=== PATIENT | female | born 1940 | race Caucasian/White ===

== ENCOUNTER 2017-06-24 11:52 | Emergency (ER) | payer MEDICARE, MEDICAID ==
[~2017-06-24] VITALS: Ht 157.5 cm; Wt 63.5 kg
[~2017-06-24 11:52] MED LIST: ACETAMINOPHEN325 M2 PO; ACETAMINOPHEN650 M1 PO; CLARITIN10 MG PO; DONEPEZIL 5MG TA5 MG PO; ENULOSE10 GM/15 M PO; FOSAMAX70 MG PO; IMODIUM2 MG PO; KEFLEX 500MG.500 MG PO; KLOR-CON M1010 MEQ PO; LASIX20 MG PO; LOPERAMIDE2 MG PO; MIRALAX17 GM/DOSE PO; Mobic7.5 MG PO; OS-CAL 500+D 501 TAB PO; OXYBUTYNIN CHLO10 MG PO; OYSTER SHELL CA PO; POTASSIUM CHLO10 ME3 PO; REQUIP1 MG PO; SYNTHROID 0.00.05 MG PO; TAMIFLU 75MG CA75 MG PO; TESSALON PERLE100 M1 PO; VENTOLIN H0.09 MG/AC IH; ZOCOR10 MG PO; ZOFRAN ODT4 MG PO; ZYPREXA ZYDIS5 MG PO
--- NOTE | 2017-06-24 12:00 | Emergency Room Report ---
History of Present Illness Time Seen by [id number] Presenting Problem in Triage Pt arrived:Ambulance Stretcher Presenting Problem:VOMITING WITH FEVER SINCE THIS MORNING Onset of symptoms date/time:06/2406/02/800 or onset unknown for: Treatment Prior to Arrival: BRAND COORDINATOR Provided by: Sepsis Risk Assessment: Temp: 101.5 B/P: 118/96 MAP: 103 Pulse: 119 Resp: 16 Recent fever? Y Clinical Suspician of Infection? N Mental Status: 1 - Regular (Normal Baseline) Sepsis Risk:Possible Sepsis Risk Have you (or family members/close friends) recently traveled outside the [place]? N If Yes, where/when: Have you had exposure to infectious disease within the past month? N TB? Other? Specify: Comment The patient is sent in by ambulance from [facility] for fever and vomiting that started this morning. The patient is nonverbal and unable to give any further history. ALLERGIES Coded Allergies: erythromycin base (From ERYTHROCIN) (10/14/15) Home Medications Active Scripts Ondansetron (Zofran 4MG Odt) 4 MG PO Q6HP PRN NAUSEA AND VOMITING #10 ODT Prov: 10/14/15 Reported Medications Lactulose (Enulose) 10 GM PO DAILY Alendronate Sodium (Fosamax) 70 MG PO WEEKLY Furosemide (Lasix) 20 MG PO DAILY Levothyroxine Sodium (Synthroid 0.05MG) 0.05 MG PO DAILY Loratadine (Claritin 10MG Tab) 10 MG PO DAILY Meloxicam (Mobic) 7.5 MG PO BID Olanzapine (Zyprexa Zydis) 20 MG PO DAILY Polyethylene Glycol 3350 (Miralax) 17 GM PO DAILY Ropinirole Hydrochloride (Requip) 1 MG PO BID Simvastatin (Zocor) 10 MG PO QHS Potassium Chloride (Klor-Con M10) 10 MEQ PO DAILY Oxybutynin Chloride (Oxybutynin Chloride ER) 10 MG PO DAILY Calcium/Cholecalciferol (Oyster Shell Ca/Vit D 500 MG-200 Iunits) 1 TAB PO DAILY Acetaminophen (Acetaminophen Tab) 325 MG PO Q4H PRN PAIN LOPERAMIDE HCL (Loperamide) 2 MG PO Q3H ALBUTEROL (Ventolin Hfa) 1 PUFF IH Q4H PRN BREATHING Donepezil HCl (Donepezil 5MG) 5 MG PO DAILY History Medical History General CAD? No Angina: No [place]: No Hypertension? No Hyperlipidemia? Yes CHF? No DVT? No PE? No COPD? No Asthma? No Anemia? No GERD? No Gastric ulcers? No GI Bleed? No Hernia? No Thyroid Problems? Yes Hypothyroidism? Yes CVA? No Seizures? No Diabetes? No Renal Insuffiency? No End Stage Renal Disease? No UTI? No Stones? No BPH? No GB Disease: No Nephritic Syndrome? No Asplenia? No Hepatitis? No Sickle Cell Disease? No Arthritis? No Migraines? No Cataracts? No Glaucoma? No MRSA? No HIV? No TB? No Anxiety? No Depression? Yes Cancer? No More? Yes Additional hx: DEMENTIA, SCHIZOPHRENIA,RLS Immunization Hx DT/Tetanus UNKNOWN Surgical Hx Previous Surgery?Y THYROID Social History Smoking Hx Smoker: Unknown if Ever Smoked Tobacco: No Alcohol Alcohol: No Review of Systems All Other Systems Reviewed and Negative (unobtainable, nonverbal) Physical Exam Vital Signs Vital Signs Date Time Temp Pulse Resp B/P Pulse O2 O2 Flow FiO2 Ox Delivery Rate 06/24 1512 101.0 114 20 160/81 96 06/24 1510 101.0 114 20 160/81 96 06/24 1355 101.0 98 20 140/78 97 06/24 1154 101.5 119 16 118/96 94 General Appearance no apparent distress, cachetic, nonverbal. Contractures of extremities. Not cooperative with exam, resists any movement. Eye Exam - bilateral eye normal exam, bilateral eye PERRL, bilateral eye EOMI Ear, Nose, Throat tympanic membranes unremarkable. Will not open mouth to inspect the pharynx or oral cavity. Neck normal inspection, non-tender, supple, full range of motion Respiratory Status Yes: trachea midline, chest symmetrical, non tender chest. No: respiratory distress. Lung Sounds bilateral: normal breath sounds, lungs clear. Cardiovascular no peripheral edema, no gallop, no JVD, no murmur, no rub, normal peripheral pulses, tachycardia Peripheral Pulses Pulses normal Yes Gastrointestinal normal bowel sounds, normal exam, non tender (no guarding or grimacing), soft, no organomegaly Extremities no erythema, no signs of cellulitis Neurologic alert (eyes open) Skin intact, normal color, warm/dry Lymphatic no adenopathy Medical Decision Making LABS/Meds/Orders Pt receiving controlled substance in ED? No Results/Orders Laboratory Tests 06/24/17 1335: Lactic Acid 2.0 06/24/17 1248: Sodium 147 H, Potassium 4.0, Chloride 110 H, Carbon Dioxide 26, BUN 28 H, Creatinine 1.4 H, Estimated Creat Clear 34 L, Estimated GFR (MDRD) 37 L, Glucose 139 H, Calcium 9.9, Total Bilirubin 0.6, AST 17, ALT 14, Alkaline Phosphatase 107, Total Protein 7.1, Albumin 3.2 L, Globulin 3.9 H, Albumin/ Globulin Ratio 0.8 L, WBC 4.6 L, RBC 4.90, Hgb 14.5, Hct 45.4, MCV 92.7, RDW 12.8, Plt Count 117 L, MPV 8.7, Gran % 89.6 H, Gran # 4.1, Total Counted 100, Lymphocytes % 8.3 L, Monocytes % 1.0 L, Eosinophils % 1.0, Basophils % 0.2, Neutrophils 74, Band Neutrophils 6, Lymphocytes (Manual) 9 L, Lymphocytes # 0.4 L, Monocytes (Manual) 5, Monocytes # 0.0 L, Eosinophils # 0.1, Eosinophils # ( Manual) 1, Basophils # 0.0, Atypical Lymphocytes 5, Platelet Estimate SLIGHT DECREASE, PUBS MCHC 31.9, MCH 29.6 06/24/17 1240: Urine Color YELLOW, Urine Appearance TURBID, Urine pH 7.0, Ur Specific [place] 1.015, Urine Protein 2+ H, Urine Ketones TRACE H, Urine Blood 3+ H, Urine Nitrate NEGATIVE, Urine Bilirubin NEGATIVE, Urine Urobilinogen 0.2, Ur Leukocyte Esterase 3+ H, Urine RBC 10-20, Urine WBC TNTC, Urine Bacteria 4+, Urine Glucose NEGATIVE 06/24/17 1226: Stl Cyclospora species NOT DETECTED, Stool Rotavirus (PCR) NOT DETECTED, Stool Campylobacter PCR NOT DETECTED, Stool Giardia Lamblia PCR NOT DETECTED, Stl Norovirus GI/GII PCR NOT DETECTED, Adenovirus (PCR) NOT DETECTED, C. difficile Tox (PCR) NOT DETECTED, E. coli (PCR) NOT DETECTED, Yersinia (PCR) NOT DETECTED Current Medication Orders Sig/Lesley Start time Last Medication Dose Route Stop Time Status Admin Ceftriaxone Sodium 0 .STK-MED ONE 06/24 1344 DC IV Sodium Chloride 1,000 ML .STK-MED ONE 06/24 1344 DC IV Sodium Chloride 100 ML .STK-MED ONE 06/24 1344 DC IV Ondansetron HCl 0 .STK-MED ONE 06/24 1343 DC .ROUTE Ondansetron HCl 4 MG ONCE ONE 06/24 1330 DC 06/24 IV 06/24 1331 1347 Sodium Chloride 1,000 ML .Q1H1M 06/24 1330 DC 06/24 IV 06/24 1430 1347 Ceftriaxone Sodium 1 GM ONCE ONE 06/24 1315 DC 06/24 Sodium Chloride 50 ML IV 06/24 1344 1347 Sodium Chloride 10 ML PRN PRN 06/24 1215 DCD IV 06/25 1205 Orders Procedure Date/time Status DIFFERENTIAL-WBC 06/24 1248 Complete CULTURE, URINE 06/24 1240 Active IV SALINE LOCK 06/24 1206 Active URINARY CATHETER INSERT 06/24 1206 Active CULTURE, BLOOD 06/24 1206 Active URINALYSIS/COMPLETE 06/24 1206 Complete LACTIC ACID 06/24 1206 Complete DIARRHEA PANEL, PCR 06/24 1206 Complete CBC WITH AUTO DIFF 06/24 1206 Complete CHEM 12 PROFILE 06/24 1206 Complete XRAY/CT/US XRAY/CT/US XRAY chest Comment Chest x-ray interpreted by Odin Baca M.D. No infiltrate, pneumothorax, pleural effusion, or wide mediastinum. Progress - 1:25 PM: Case discussed with Landon Guido for Dr. Moctezuma. She requests the patient be given a liter of saline in addition to the Rocephin already ordered. Send her back to add to my detention with IV in place and she will order Rocephin once a day. Departure Departure Disposition DC Home or Self Care(routine) Clinical Impression Primary Impression: Pyelonephritis Condition STABLE Referrals Adalberto Moctezuma MD (PCP/Family) Patient Instructions DI for Kidney Infection Additional Instructions Rocephin 1 g daily as ordered by Landon Guido. Additional instructions for URINARY TRACT INFECTION: Return immediately if you have an uncontrollable fever greater than 104 degrees, severe back or abdominal pain, inability to urinate, or repetetive vomiting. ED Critical Care Critical Care No at [id number]
[2017-06-24 12:47] LABS: AEROMONAS NOT DETECTED (NOT DETECTE); ASTROVIRUS NOT DETECTED (NOT DETECTE); CYCLOSPORA CAYETANENSIS NOT DETECTED (NOT DETECTE); E COLI O157 NOT DETECTED (NOT DETECTE); ENTEROAGGREGATIVE E COLI NOT DETECTED (NOT DETECTE); ENTEROPATHOGENIC E COLI NOT DETECTED (NOT DETECTE); ENTEROTOXIGENIC E COLI NOT DETECTED (NOT DETECTE); NOROVIRUS NOT DETECTED (NOT DETECTE); SAPOVIRUS NOT DETECTED (NOT DETECTE); SHIGA-LIKE TOXIN PROD. E COLI NOT DETECTED (NOT DETECTE); SHIGELLA/ENTEROINVASIVE E COLI NOT DETECTED (NOT DETECTE); VIBRIO CHOLERAE NOT DETECTED (NOT DETECTE)
[2017-06-24 12:56] LABS: URINE BILIRUBIN - DIPSTICK NEGATIVE (NEG); URINE BLOOD 3+ (NEG)
[2017-06-24 13:00] LABS: HEMOGLOBIN 14.5 g/dL (12.2-16.2); LYMPH # 0.4 K/mm3 (0.7-4.5); LYMPH % 8.3 % (10-50.0)
--- NOTE | 2017-06-24 13:33 | RADIOLOGY REPORT PS360 ---
CHEST-PORTABLE HISTORY: fever, vomiting ORDERING PHYSICIAN: Odin Baca MD PATIENT AGE: 77 years COMPARISON: 12/29/2012 FINDINGS: The cardiomediastinal silhouette and pulmonary vascularity are within normal limits. The lungs are clear without infiltrates, suspicious nodules, or pleural effusions. No acute bony abnormalities. IMPRESSION: No change with no acute finding
[2017-06-24 13:37] LABS: NEUTROPHILS 74 % (42-76)
[2017-06-24 15:12] VITALS: BP 160/81
== END 2017-06-24 16:05 | disposition home or self-care (01) ==
LOC: ER 11:52
PROVIDERS: Emergency Medicine
DX: N12 Tubulo-interstitial nephritis, not specified as acute or chronic (principal); F03.90 Unspecified dementia, unspecified severity, without behavioral disturbance, psychotic disturbance, mood disturbance, and anxiety; E89.0 Postprocedural hypothyroidism; E78.5 Hyperlipidemia, unspecified; Z79.899 Other long term (current) drug therapy; Z88.8 Allergy status to other drugs, medicaments and biological substances
CPT/HCPCS: J2405

== ENCOUNTER → 2017-06-29 | Outpatient (CLI) | payer MEDICARE, MEDICAID ==
[2017-06-29 13:38] LABS: HEMOGLOBIN 13.2 g/dL (12.2-16.2); LYMPH # 2.8 K/mm3 (0.7-4.5); LYMPH % 33.7 % (10-50.0)
[2017-06-29 13:48] LABS: BUN 31 mg/dL (7-18); GFR (ESTIMATED) 54 ML/MIN (59-)
== END ==
LOC: LAB 12:25
PROVIDERS: Emergency Medicine
DX: N10 Acute pyelonephritis (principal); R50.9 Fever, unspecified; R11.10 Vomiting, unspecified; E86.0 Dehydration; Z51.81 Encounter for therapeutic drug level monitoring

== ENCOUNTER → 2017-07-01 | Outpatient (CLI) | payer MEDICARE, MEDICAID ==
[2017-07-02 14:24] LABS: BUN 22 mg/dL (7-18); GFR (ESTIMATED) 81 ML/MIN (59-)
== END ==
LOC: LAB 23:39
PROVIDERS: Emergency Medicine
DX: R11.10 Vomiting, unspecified (principal); R50.9 Fever, unspecified; E86.0 Dehydration; Z51.81 Encounter for therapeutic drug level monitoring

== ENCOUNTER → 2017-07-01 | Outpatient (CLI) | payer MEDICARE, MEDICAID | LOC: LAB 20:50 | DX: R11.10 Vomiting, unspecified (principal); R50.9 Fever, unspecified; E86.0 Dehydration; Z51.81 Encounter for therapeutic drug level monitoring ==